=== PATIENT | female | born 1940 | race Caucasian/White ===

== ENCOUNTER 2017-02-11 04:58 | Inpatient (IN) | payer MEDICARE, OTHER ==
[~2017-02-11 04:58] MED LIST: ACETAMINOPHEN500 M4 PO; ASPIR-TRIN325 M2 PO; BONIVA; CALCIUM PO; CHLORPHENIRAMINE4 M1 PO; FLONASE ALLERG9.9 ML; MAPAP PM PO; METFORMIN HCL500 M2 PO; MOBIC15 M2 PO; OXYCODONE HCL5 M1 PO; PLAQUENIL200 M1 PO; PROCTOZONE-HC30 G2 TOP; PROTONIX40 M2 PO; TOPROL XL100 M1 PO; ULTRAM50 M1 PO; VITAMIN C1000 M1 PO; VITAMIN D31000 UNI4 PO; ZOCOR20 M1 PO
[2017-02-11] MEDS ORDERED: OXYCODONE HCL5 M1 PO (10:55)
[2017-02-12 05:29] LABS: BASO % 0.1 % (0-2); EOS % 1.3 % (0-7); EOSINOPHIL ABSOLUTE COUNT 0.1 tho/cmm (0.0-0.7); HCT-HEMATOCRIT 33.2 % (34.0-49.0); HGB-HEMOGLOBIN 11.1 gm/dl (12.0-15.5); IMMATURE GRANULOCYTES ABSOLUTE 0.03 tho/cmm (0-0.03); IMMATURE GRANULOCYTES PERCENT 0.4 % (0-0.3); LYMPH % 6.6 % (20-45); LYMPH ABSOLUTE COUNT 0.5 tho/cmm (0.8-4.5); MCH (MEAN CORPUSCULAR HGB) 27.8 pg (28.0-32.0); MCHC MEAN CORPUSCULAR HGB CONC 33.4 % (32.0-36.0); MEAN PLATELET VOLUME 10.7 cmc (9.4-12.4); MONO % 13.4 % (0-12); NEUTROPHIL ABSOLUTE COUNT 6.1 tho/cmm (1.6-8.0); NEUTROPHIL-AUTOMATED 6.1 tho/cmm (1.6-8.0); NEUTROPHILS % 78.2 % (40-80); PLATELET COUNT 159 tho/cmm (150-450); RED CELL DISTRIBUTION WIDTH 13.6 % (12.4-16.4); WHITE BLOOD COUNT 7.8 tho/cmm (4.0-10.0)
[2017-02-12] MEDS ORDERED: ASPIRIN325 M3 PO (10:59)
== END 2017-02-14 13:50 | DRG 470 ==
LOC: SHSA 04:58 → ORE 08:02 → PACU 09:17 → 5EA 10:00
PROVIDERS: ADMIT Orthopaedic Surgery Sports Medicine
PROC: 0SRD0J9 Replacement of Left Knee Joint with Synthetic Substitute, Cemented, Open Approach (ICD-10-PCS; principal; 2017-02-11)
DX: M17.12 Unilateral primary osteoarthritis, left knee (principal); Z88.1 Allergy status to other antibiotic agents; Z88.7 Allergy status to serum and vaccine
CPT/HCPCS: C1713; J0171; J0690; J1815; J1885; J2270; J2795